=== PATIENT | male | born 1935 | race Caucasian/White ===

== ENCOUNTER 2018-08-19 12:38 | Emergency (ER) | payer SELFPAY ==
[2018-08-19 13:57] LABS: URINE BILIRUBIN NEGATIVE (NEGATIVE); URINE BLOOD SMALL (NEGATIVE); URINE GLUCOSE (UA) NEGATIVE (NEGATIVE); URINE KETONE NEGATIVE (NEGATIVE); URINE LEUKOCYTE ESTERASE NEGATIVE (NEGATIVE); URINE MICROSCOPIC INDICATED? YES; URINE NITRATE NEGATIVE (NEGATIVE); URINE PROTEIN 30 mg/dL (NEGATIVE); URINE SOURCE CLEAN C; URINE UROBILINOGEN 0.2 E.U./dL (0.2 - 1.0)
[2018-08-19 14:11] LABS: AMPHETAMINE URINE NEGATIVE (NEGATIVE); BARBITURATES URINE NEGATIVE (NEGATIVE); BENZODIAZEPINES QUAL URINE NEGATIVE (NEGATIVE); CANNABINOID THC NEGATIVE (NEGATIVE); COCAINE METABOLITE QUAL URINE NEGATIVE (NEGATIVE); METHADONE URINE NEGATIVE (NEGATIVE); METHAMPHETAMINES QUAL URINE NEGATIVE (NEGATIVE); OPIATES (MORPHINE) QUAL. URINE POSITIVE (NEGATIVE); PHENCYCLIDINE (PCP) URINE NEGATIVE (NEGATIVE); TRICYCLICS (TCA) QUAL. URINE NEGATIVE (NEGATIVE)
[2018-08-19 14:14] LABS: URINE CLARITY CLEAR (CLEAR); URINE COLOR YELLOW
[2018-08-19 14:15] LABS: URINE BACTERIA OCCASIONAL /hpf (NONE SEEN); URINE RBC NONE SEEN /hpf (0-5); URINE WBC 0-2 /hpf (0-5)
[2018-08-19 14:16] LABS: URINE EPITHELIAL CELLS NONE SEEN /lpf (FEW)
--- NOTE | 2018-08-19 15:47 | ED Physician Chart ---
ED Chief Complaint/HPI - Patient Information Date Seen:: 08/19/18 Time Seen:: 12:52 Chief Complaint:: back pain s/p fall History of Present Illness:: back pain s/p fall no loss of bowel or bladder Allergies:: Allergies Allergy/AdvReac Type Severity Reaction Status Date / Time No Known Allergies Allergy Verified 08/19/18 12:51 Vitals:: Vital Signs - 8 hr 08/19/18 08/19/18 12:52 15:15 Temp 98.1 F HR 54 58 RR 18 BP 188/98 O2 Sat % 98 Historian:: Patient Review:: Nurse's Note Reviewed ED Review of Systems - Review of Systems General/Constitutional: No fever, No chills, No weight loss, No weakness, No diaphoresis, No edema, No loss of appetite Skin: No skin lesions, No rash, No bruising Head: No headache, No light-headedness Eyes: No loss of vision, No pain, No diplopia ENT: No earache, No nasal drainage, No sore throat, No tinnitus Neck: No neck pain, No swelling, No thyromegaly, No stiffness, No mass noted Cardio Vascular: No chest pain, No palpitations, No PND, No orthopnea, No edema Pulmonary: No SOB, No cough, No sputum, No wheezing GI: No nausea, No vomiting, No diarrhea, No pain, No melena, No hematochezia, No constipation, No hematemesis G/U: No dysuria, No frequency, No hematuria Musculoskeletal: Back pain Endocrine: No polyuria, No polydipsia Psychiatric: No prior psych history, No depression, No anxiety, No suicidal ideation Hematopoietic: No bruising, No lymphadenopathy Allergic/Immuno: No urticaria, No angioedema Neurological: No syncope, No focal symptoms, No weakness, No paresthesia, No headache, No seizure, No dizziness, No confusion, No vertigo ED Past Medical History - Past Medical History Past Medical History: HTN, CVA/TIA, Other (chronic back pain; decreased strength in the LUE and LLE (chronic)) Family Medical History - Family Member Mother History Unknown: Yes Ethnicity: Living Status: ED Physical Exam - Physical Examination General/Constitutional: Awake, Well-developed, well-nourished, Alert, No distress, GCS 15, Non-toxic appearing, Ambulatory Head: Atraumatic Skin: Nl inspection, No rash, No skin lesions, No ecchymosis ENMT: External ears, nose nl Neck: Nontender, No nuchal rigidity Extremities: No tenderness or effusion, Full ROM, No edema Other Extremities comments:: decreased strength in the LUE and LLE (chronic) Neuro/Psych: Normal sensory exam, Normal motor strength, Judgement/insight normal, Mood normal, No focal deficits Other Misc comments:: low back pain and thoracic back pain. negative straight leg raise ED Labs/Radiology/EKG Results - Lab Results Results: Laboratory Tests 08/19/18 08/19/18 13:50 13:50 Urine Source CLEAN C Urine Color YELLOW Urine Clarity CLEAR Urine pH 6.0 Ur Specific [place] 1.025 Urine Protein 30 H Urine Glucose (UA) NEGATIVE Urine Ketones NEGATIVE Urine Blood SMALL H Urine Nitrate NEGATIVE Urine Bilirubin NEGATIVE Urine Urobilinogen 0.2 Ur Leukocyte Esterase NEGATIVE Urine RBC NONE SEEN Urine WBC 0-2 Ur Epithelial Cells NONE SEEN Urine Bacteria OCCASIONAL Urine Opiates Screen POSITIVE H Urine Methadone Screen NEGATIVE Ur Barbiturates Screen NEGATIVE Ur Tricyclics Screen NEGATIVE Ur Phencyclidine Scrn NEGATIVE Amphetamines Screen NEGATIVE U Methamphetamines Scrn NEGATIVE U Benzodiazepines Scrn NEGATIVE U Cocaine Metab Screen NEGATIVE U Cannabinoids Screen NEGATIVE ED Assessment - Assessment General Assessment: patient doing well. ready to discharge, but his blood pressure went up to over 200. Therefore, gave patient po clonidine. daughter wants patient admitted even though there is no medical reason to do so. when she was called earlier to come in to see her father so that I could give him pain medicine, she told us that she was "too busy with her daughter." ED Septic Shock - . Is Septic Shock (SBP<90, OR Lactate>4 mmol\\L) present?: No - <6hrs of presentation: Vital Signs: Vital Signs - 8 hr 08/19/18 08/19/18 12:52 15:15 Temp 98.1 F HR 54 58 RR 18 BP 188/98 O2 Sat % 98 ED Reassessment (Disposition) - Reassessment Reassessment Condition:: Improved - Diagnosis Diagnosis:: Chronic low back pain Malignant hypertension - Aftercare/Follow up Instructions Aftercare/Follow-Up Instructions:: Refer to Discharge Instructions Notes:: follow up with primary care physician. please change positions slowly. Medication Prescribed:: none. Patient has pain pills at home. - Patient Disposition Discharge/Transfer:: Home Condition at Disposition:: Stable, Improved
--- NOTE | 2018-08-20 09:08 | Diagnostic Imaging Report ---
CT thoracic spine spine without IV contrast HISTORY: Back pain and fall COMPARISON: Lumbar spine CT the same day Technique: Axial images were obtained from the lower cervical spine to the upper lumbar spine without IV contrast. Reconstructions were made. total DLP: 1856, CTDI 53 Findings: Images of the thoracic spine obtained without contrast demonstrate no evidence of an acute fracture or subluxation. Note assessment of the upper thoracic spine was limited due to motion. Multilevel moderate degenerative changes are seen throughout the thoracic spine with multilevel marginal osteophytic spurs greatest anteriorly. Advanced degenerative changes of lower cervical spine is also left with posterior disc osteophyte and anterior disc osteophyte spurs. Hypoventilatory changes of the lungs are noted. Atherosclerosis is noted. IMPRESSION: Limited assessment of upper thoracic spine due to motion, otherwise, no evidence of an acute fracture or subluxation Degenerative changes Atherosclerotic vascular disease.
--- NOTE | 2018-08-20 09:14 | Diagnostic Imaging Report ---
CT lumbar spine without IV contrast HISTORY: Fall, back pain COMPARISON: Thoracic spine CT the same day Technique: Axial images were obtained from the lower thoracic spine to the upper sacrum without IV contrast. Reconstructions were made. total DLP: 838, CTDI41.3 Findings: Images of the lumbar spine obtained without contrast demonstrate no evidence of an acute fracture. Note that the superior aspect of L1 is incompletely visualized on this exam and was visualized on CT thoracic spine exam the same day. Old right L1 transverse process fracture versus nonunited transverse process is noted. Advanced degenerative changes are seen with multilevel disc space loss of height and multilevel marginal ossific spurs. There is also 2 mm retrolisthesis of L2 on L3 likely due to facet arthropathy. Severe multilevel facet degenerative changes are noted greatest within the lower lumbar spine. There is also multilevel posterior disc osteophyte complexes extending from L2 through S1. The combination of degenerative changes causes multilevel spinal canal and neural foraminal narrowing including at spinal stenosis at L4/L5 with bilateral moderate to severe neural foraminal narrowing at this level. Vacuum disc phenomena seen at multiple levels. Punctate right renal calcifications are noted possibly vascular. Degenerative changes of SI joints are noted. IMPRESSION: No evidence of an acute fracture. 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 Severe degenerative changes with spinal stenosis. If indicated MRI follow-up may be obtained for further assessment. 2 mm retrolisthesis of L2 on L3 likely due to facet arthropathy Atherosclerotic vascular disease. Right renal calcifications probably vascular.
== END 2018-08-19 16:25 | disposition home or self-care (01) ==
LOC: ER 12:38
DX: M54.5 Low back pain (principal); M54.6 Pain in thoracic spine; G89.29 Other chronic pain; I10 Essential (primary) hypertension; Z86.73 Personal history of transient ischemic attack (TIA), and cerebral infarction without residual deficits
CPT/HCPCS: 72128-TC; 72131-TC; 80307; 81001-TC; Z7610